=== PATIENT | male | born 1945 | race Caucasian/White ===

== ENCOUNTER 2019-12-25 06:02 | Inpatient (IN) ==
[~2019-12-25 06:02] MED LIST: Vancomycin 1,000 MG, Sodium Chloride IRRigation 1,000 ML IR ONE
[2019-12-25] MEDS ORDERED: CeFAZolin Syr 2,000MG/20 ML 2,000 MG/20 ML SYRINGE IVPB ONE (06:36)
[2019-12-25] MEDS ORDERED: 0.9 % Sodium Chloride 500 ML IVC SCH (06:45)
[2019-12-25] MEDS ORDERED: Protamine Sulfate 50 MG/5 ML VIAL IVP ONE (07:00)
[2019-12-25] MEDS ORDERED: Bupivacaine-MPF 0.25% 10 ML VIAL ONE (07:00)
[2019-12-25] MEDS ORDERED: Heparin 1,000 UNITS/500 mL 500 ML ONE ×2 (07:00→07:17)
[2019-12-25] MEDS ORDERED: Ondansetron 4 MG/2 ML VIAL IVP ONE (07:02)
[2019-12-25] MEDS ORDERED: *HR* OxyCODONE Immed Rel 5 MG TABLET PO PRN ×3 (07:02→13:09)
[2019-12-25] MEDS ORDERED: *HR* Rocuronium Bromide 50 MG/5 ML VIAL ONE (07:14)
[2019-12-25] MEDS ORDERED: Neostigmine Methylsulfate 3 MG/3 ML SYRINGE ONE (07:14)
[2019-12-25] MEDS ORDERED: *HR* FentaNYL (PF) 100 MCG/2 ML VIAL ONE (07:14)
[2019-12-25] MEDS ORDERED: Lidocaine -MPF 2% 2 ML VIAL ONE (07:14)
[2019-12-25] MEDS ORDERED: Dexamethasone 4 MG/ML VIAL ONE (07:14)
[2019-12-25] MEDS ORDERED: *HR* Propofol 200 MG/20 ML VIAL IVP ONE (07:14)
[2019-12-25] MEDS ORDERED: Ringers Solution, Lactated 1,000 ML IVC SCH (07:15)
[2019-12-25] MEDS ORDERED: *HR* Remifentanil 2 MG VIAL IVP ONE (07:23)
[2019-12-25] MEDS ORDERED: EPHEDrine 50 MG/ML VIAL ONE (08:26)
[2019-12-25] MEDS: *HR* HYDROmorphone PF 0.5 MG/0.5 ML SYRINGE IVP PRN ×2 (11:05→11:20)
[2019-12-25] MEDS ORDERED: Acetaminophen 325 MG TABLET PO PRN (13:09)
[2019-12-25] MEDS ORDERED: *HR* Labetalol 20 MG/4 ML SYRINGE IVP PRN (13:09)
[2019-12-25] MEDS ORDERED: D5% in Water 1,000 ML IVC PRN (13:09)
[2019-12-25] MEDS ORDERED: 0.9 % Sodium Chloride 1,000 ML IVC SCH (13:09)
[2019-12-25] MEDS ORDERED: *HR* Dextrose 50 % in Water (Syg) 50 ML SYRINGE IVP PRN (13:09)
[2019-12-25] MEDS ORDERED: Dextrose Gel 15 GM/37.5 ML TUBE PO PRN ×2 (13:09)
[2019-12-25] MEDS ORDERED: Naloxone 0.4 MG/ML INJ IVP PRN (13:09)
[2019-12-25] MEDS ORDERED: *HR* HYDROcodone/Acet 5/325 mg TABLET PO PRN ×2 (13:09)
[2019-12-25] MEDS: Insulin LISPRO 300 UNITS/3 ML VIAL SQ SCH ×2 (13:10→17:43)
[2019-12-25] MEDS: Aspirin Enteric Coated 81 MG Tablet PO SCH (15:17)
[2019-12-25] MEDS: lisinopriL 20 MG TABLET PO SCH (15:17)
[2019-12-25] MEDS: *HR* Metoprolol 5 MG/5 ML VIAL IVP SCH ×3 (15:17→23:58)
[2019-12-25] MEDS: ceFAZolin 2,000 MG in 0.9 % Sodium Chloride 100 ML IVPB SCH ×2 (17:44→23:58)
[2019-12-25] MEDS ORDERED: Insulin LISPRO 300 UNITS/3 ML VIAL SQ SCH (21:00)
[2019-12-26] MEDS: *HR* Metoprolol 5 MG/5 ML VIAL IVP SCH ×2 (05:21→11:42)
[2019-12-26] MEDS ORDERED: *HR* Heparin 5,000 UNIT/ML VIAL SQ SCH ×2 (06:00)
[2019-12-26] MEDS: Insulin LISPRO 300 UNITS/3 ML VIAL SQ SCH ×2 (07:44→11:41)
[2019-12-26] MEDS: lisinopriL 20 MG TABLET PO SCH (07:45)
[2019-12-26] MEDS: Aspirin Enteric Coated 81 MG Tablet PO SCH (07:45)
[2019-12-26] MEDS ORDERED: amLODIPine 5 MG TABLET PO SCH (09:00)
[2019-12-26 11:41] VITALS: BP 137/73
== END 2019-12-26 13:50 | disposition home or self-care (01) | DRG 38 ==
LOC: SAMDAY 06:02 → 3NENU 12:13
PROVIDERS: ADMIT Surgery; ATTEND Surgery